=== PATIENT | female | born 1990 | race Caucasian/White ===

== ENCOUNTER 2018-07-02 22:03 | Emergency (ER) | payer OTHER ==
[2018-07-02 22:19] VITALS: BMI 29.1
[2018-07-02] MEDS ORDERED: SODIUM CHLORIDE 1,000 ML IV STA (23:57)
--- NOTE | 2018-07-02 23:57 | PDOC ---
History of Present Illness - General Chief Complaint: Pain Stated Complaint: ABDOMINAL PAIN Time Seen by Provider: 07/02/18 23:47 History Source: Patient Exam Limitations: No Limitations - History of Present Illness Travel History: No Initial Comments: 07/03/18 00:25 HISTORY OF PRESENT ILLNESS: 28-year-old woman who denies medical history presents emergency department for evaluation of lower abdominal pain for the past 2 days. Patient reported having general feeling of malaise starting on which progressed to an "uneasy" feeling in her abdomen. Patient reports the uneasy feeling started diffusely throughout the abdomen but is now localized in the right lower quadrant she now currently describes the pain as a "soreness." The patient rates the pain 6/10 and is unable to identify any aggravating or alleviating factors. Patient reports her LMP was 06/25. Patient reports having unprotected oral and vaginal sex with one male partner. She denies any vaginal discharge or dysparunia. No recent travel or sick contacts. PAST MEDICAL HISTORY: Denies past medical history SURGICAL HISTORY: Denies ALLERGIES: No known drug allergies REVIEW OF SYSTEMS General/Constitutional: Denies fever or chills. Denies weakness, weight change. HEENT: Denies change in vision. Denies ear pain or discharge. Denies sore throat. Cardiovascular: Denies chest pain or shortness of breath. Respiratory: Denies cough, wheezing, or hemoptysis. Gastrointestinal: Denies nausea, vomiting, diarrhea or constipation. Denies rectal bleeding. +RLQ pain Genitourinary: Denies dysuria, frequency, or change in urination. Musculoskeletal: Denies joint or muscle swelling or pain. Denies neck or back pain. Skin and breasts: Denies rash or easy bruising. Neurologic: Denies headache, vertigo, loss of consciousness, or loss of sensation. Psychiatric: Denies depression or anxiety. Endocrine: Denies increased thirst. Denies abnormal weight change. Hematologic/Lymphatic: Denies anemia, easy bleeding, or history of blood clots. Allergic/Immunologic: Denies hives or skin allergy. Denies latex allergy. PHYSICAL EXAM General Appearance: Well-appearing, appropriately dressed. No apparent distress , no intoxication. Respiratory/Chest: Lungs CTAB. No shortness of breath, chest tenderness, respiratory distress, accessory muscle use. No crackles, rales, rhonchi, stridor , wheezing, dullness Cardiovascular: RRR. S1, S2. No JVD, murmur, bradycardia, tachycardia. Gastrointestinal/Abdominal: Normal bowel sounds. Abdomen soft, non-distended. RLQ tenderness. No rebound tenderness. No organomegaly, pulsatile mass, guarding , hernia, hepatomegaly, splenomegaly. 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 Malodorous mucopurulent cervical discharge present. No adnexal masses palpable. Right adnexal tenderness present. Musculoskeletal/Extremities: Normal inspection. FROM of all extremities, normal capillary refill. Pelvis Stable. No CVA tenderness. No tenderness to extremities, pedal edema, swelling, erythema or deformity. Past History - Past Medical History Allergies/Adverse Reactions: Allergies Allergy/AdvReac Type Severity Reaction Status Date / Time No Known Drug Allergies Allergy Verified 07/02/18 22:19 Home Medications: Ambulatory Orders Doxycycline Hyclate 100 mg PO BID #28 capsule 07/03/18 Anemia: No Asthma: No Cancer: No Cardiac Disorders: No CVA: No COPD: No CHF: No Dementia: No Diabetes: No GI Disorders: No Disorders: No HTN: No Hypercholesterolemia: No Liver Disease: No Seizures: No Thyroid Disease: No - Suicide/Smoking/Psychosocial Hx Smoking Status: No Smoking History: Current every day smoker Number of Cigarettes Smoked Daily: 2 Information on smoking cessation initiated: No Hx Alcohol Use: No Drug/Substance Use Hx: No Substance Use Type: None Hx Substance Use Treatment: No *Physical Exam - Vital Signs Last Vital Signs Temp Pulse Resp BP Pulse Ox 100.2 F H 123 H 20 140/74 99 07/02/18 22:17 07/02/18 22:17 07/02/18 22:17 07/02/18 22:17 07/02/18 22:17 Moderate Sedation - Procedure Monitoring Vital Signs: Procedure Monitoring Vital Signs Temperature 100.2 F H 07/02/18 22:17 Pulse Rate 123 H 07/02/18 22:17 Respiratory Rate 20 07/02/18 22:17 Blood Pressure 140/74 07/02/18 22:17 O2 Sat by Pulse Oximetry (%) 99 07/02/18 22:17 ED Treatment Course - LABORATORY CBC & Chemistry Diagram: 07/03/18 00:05 07/03/18 00:05 Medical Decision Making - Medical Decision Making 07/03/18 00:34 A/P: 28-year-old woman with right lower quadrant pain for 2 days Normoactive bowel sounds Tenderness and guarding to the right lower quadrant No rebound 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 No cervical motion tenderness noted. Normal vaginal tone Malodorous mucopurulent cervical discharge present Right adnexal tenderness present no masses palpable DDx: Tubo-ovarian abscess, PID, appendicitis, UTI, ectopic Labs, urine, TVUS, CTAP 07/03/18 05:03 Laboratory testing is unremarkable. EKG reviewed by me as read by Dr. Shirley: Sinus tachycardia with heart rate of 103. Normal intervals noted. No ischemic changes present. Ultrasound as read by imaging control clerk head: Right ovary measures 4.4 x 3.5 x 2.6 cm in diameter contains multiple small follicles. 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 Color Doppler duplex interrogation of the right ovary with spectral analysis demonstrates normal internal flow. Left ovary is within normal limits CAT scan is read by imaging control clerk head: Nonvisualization of the appendix but no obvious inflammatory changes within the right lower quadrant in the vicinity of the cecum. Cluster of tiny heterogenous ill-defined nodules within the right lower lobe, most consistent with infectious etiology I'll treat patient with ceftriaxone 250 mg IM now doxycycline 100 mg twice a day for the next 14 days. I discussed the physical exam findings, ancillary test results and final diagnoses with the patient. I answered all of the patient's questions. The patient was satisfied with the care received and felt comfortable with the discharge plan and treatment plan. The patient will call their primary care physician within 24 hours to arrange follow-up and will return to the Emergency Department with any new, persistent or worsening symptoms. *DC/Admit/Observation/Transfer Diagnosis at time of Disposition: PID (acute pelvic inflammatory disease) - Discharge Dispostion Disposition: HOME Condition at time of disposition: Stable Decision to Admit order: No - Prescriptions Prescriptions: Doxycycline Hyclate 100 mg PO BID #28 capsule - Referrals - Patient Instructions Additional Instructions: You have been treated with Rocephin 250 mg injection for treatment of presumned gonorrhea. Take doxycycline 100mg twice a day for the next 2 weeks. Avoid sexual intercourse until you have completed all of the antibiotics and your partner has been treated. The gonorrhea and chlamydia testing will not be completed for the next few days. You may call [phone] and leave message for return phone call with lab results. Be sure to be clear with your name, date of and phone number Always use condoms with the partners Followup with ADMISSIONS CLERK or PMD in one week for reevaluation and retesting. - Post Discharge Activity Forms/Work/School Notes: Back to Work
[2018-07-03 00:35] LABS: BASO % 0.3 % (0-2.0); EOS % 0.4 % (0-4.5); HEMATOCRIT 39.1 % (32.4-45.2); LYMPH % 18.2 % (8-40); MCH 30.8 pg (25.7-33.7); MCHC 35.8 g/dl (32.0-36.0); MONO % 9.8 % (3.8-10.2); NEUT % 71.3 % (42.8-82.8); PLATELET COUNT 269 K/MM3 (134-434); RBC 4.55 M/mm3 (3.60-5.2); RDW 13.8 % (11.6-15.6); WHITE BLOOD COUNT 6.8 K/mm3 (4.0-10.0)
[2018-07-03 01:10] LABS: ALK PHOS 57 U/L (45-117); ANION GAP 10 MMOL/L (8-16); BILIRUBIN,TOTAL 0.5 mg/dL (0.2-1); BLOOD UREA NITROGEN 14 mg/dL (7-18); CALCIUM 8.3 mg/dL (8.5-10.1); CHLORIDE 103 mmol/L (98-107); CO2 23 mmol/L (21-32); CREATININE 0.7 mg/dL (0.55-1.3); GLUCOSE,RANDOM 98 mg/dL (74-106); LIPASE 159 U/L (73-393); SGOT/AST 22 U/L (15-37); SGPT/ALT 31 U/L (13-61); SODIUM 136 mmol/L (136-145); TOT PROT 7.7 g/dl (6.4-8.2)
[2018-07-03 01:13] LABS: URINE APPEARANCE CLEAR; URINE BILIRUBIN NEGATIVE (<2.0 mg/dL); URINE COLOR DKYELLOW; URINE GLUCOSE (UA) NEGATIVE (NEGATIVE); URINE KETONE NEGATIVE (NEGATIVE); URINE LEUK ESTERASE NEGATIVE (NEGATIVE); URINE NITRITE NEGATIVE (NEGATIVE); URINE PROTEIN 1+ (NEGATIVE); URINE UROBILINOGEN 4.0 E.U/dl mg/dL (0.2-1.0)
[2018-07-03 01:19] LABS: EPI CELLS RARE /HPF (FEW); URINE MUCUS MANY
[2018-07-03 04:19] VITALS: BP 120/70; PULSE 70; TEMP 98.7
[2018-07-03] MEDS ORDERED: LIDOCAINE HCL 2% (20ML MULTI-DOSE VIAL) NR ONE (04:33)
--- NOTE | 2018-07-03 11:26 | EKG ---
Test Reason : Blood Pressure : / mmHG Vent. Rate : 103 BPM Atrial Rate : 103 BPM P-R Int : 138 ms QRS Dur : 078 ms QT Int : 334 ms P-R-T Axes : 063 068 039 degrees QTc Int : 437 ms SINUS TACHYCARDIA POSSIBLE LEFT ATRIAL ENLARGEMENT BORDERLINE ECG WHEN COMPARED WITH ECG OF 09-APR-2009 12:07, NO SIGNIFICANT CHANGE WAS FOUND Confirmed by TISH PARDO MD ([id number]) on 07/03/2018 11:25:47 AM Referred By: Confirmed By:TISH PARDO MD
== END 2018-07-03 04:38 | disposition home or self-care (01) ==
LOC: JER 22:03
PROC: 3E02329 Introduction of Other Anti-infective into Muscle, Percutaneous Approach (ICD-10-PCS; principal; 2018-07-02)
PROC: 3E0337Z Introduction of Electrolytic and Water Balance Substance into Peripheral Vein, Percutaneous Approach (ICD-10-PCS; 2018-07-02)
DX: N73.8 Other specified female pelvic inflammatory diseases (principal)
CPT/HCPCS: 36415; 74177-TC; 76830-TC; 80053; 81003; 81015; 83690; 84703; 85025; 87086; 87491; 87591; 93005; 93010; 99282-25; J7030